=== PATIENT | female | born 1985 | race Caucasian/White ===

== ENCOUNTER → 2025-11-08 | Outpatient (CLI) | payer OTHER ==
[~2025-11-08] MED LIST: AMPDEX10CR PO; CEPH500 PO; FLUC150A PO; HYDACE5 PO; PROM25 PO
[2025-11-08 20:03] LABS: Bacterial Vaginosis PCR Negative (NEGATIVE); Candida Group, PCR NOT DETECTED (NOT DETECT); Candida glabrata-krusei, PCR NOT DETECTED (NOT DETECT)
[2025-11-09 13:50] LABS: Chlamydia Trachomatis Vaginal NOT DETECTED (NOT DETECT); Neisseria Gonorrhoea Vaginal NOT DETECTED (NOT DETECT)
== END ==
LOC: LAB 12:00 → LAB SHORT 12:00
PROVIDERS: Nurse Practitioner Family
DX: Z01.419 Encounter for gynecological examination (general) (routine) without abnormal findings (principal)
CPT/HCPCS: 81515; 87491; 87591; 87624; G0145